=== PATIENT | male | born 1960 ===

== ENCOUNTER 2017-07-30 20:51 | Inpatient (IN) | payer MEDICAID, OTHER ==
--- NOTE | 2017-07-30 21:04 | C.PDOC ---
History Of Present Illness 57 year old male with PMHx of depression is transferred from [facility] for admission to psych. Patient was medically cleared at [facility] prior to coming tot the ED, patient will be admitted under Dr. Garcia's service for depression. Patient denies Si/HI, hallucinations, CP, SOB, abdominal pain. Time Seen by Provider: 07/30/17 21:01 Chief Complaint (Nursing): Psychiatric Evaluation History Per: Patient, Other ([facility] ) History/Exam Limitations: no limitations Onset/Duration Of Symptoms: Days Current Symptoms Are (Timing): Still Present Suicide/Self Injury Attempted (Context): None Modifying Factor(s): None Associated Symptoms: Depression Recent travel outside of the [place]: No Additional History Per: Patient, Prior Records Past Medical History Reviewed: Historical Data, Nursing Documentation, Vital Signs Vital Signs: Last Vital Signs Temp 98.6 F 07/30/17 20:54 Pulse 60 07/30/17 20:54 Resp 18 07/30/17 20:54 BP 162/73 H 07/30/17 20:54 Pulse Ox 99 07/30/17 21:04 - Medical History PMH: Depression - Social History Hx Alcohol Use: Yes Hx Substance Use: No ED Course And Treatment O2 Sat by Pulse Oximetry: 99 Disposition - Disposition Forms: [email or web address] (Turkish)
--- NOTE | 2017-07-30 21:06 | C.PDOC ---
History Of Present Illness 57 year old male with PMHx of depression is transferred from [facility] for admission to psych. Patient was medically cleared at [facility] prior to coming tot the ED, patient will be admitted under Dr. Garcia's service for depression. Patient denies SI/HI, hallucinations, CP, SOB, abdominal pain. Time Seen by Provider: 07/30/17 21:01 Chief Complaint (Nursing): Psychiatric Evaluation History Per: Patient, Other ([facility]) History/Exam Limitations: no limitations Onset/Duration Of Symptoms: Days Current Symptoms Are (Timing): Still Present Suicide/Self Injury Attempted (Context): None Associated Symptoms: Depression Recent travel outside of the [place]: No Additional History Per: Patient Past Medical History Reviewed: Historical Data, Nursing Documentation, Vital Signs Vital Signs: Last Vital Signs Temp 98.6 F 07/30/17 20:54 Pulse 60 07/30/17 20:54 Resp 18 07/30/17 20:54 BP 162/73 H 07/30/17 20:54 Pulse Ox 99 07/30/17 21:09 - Medical History PMH: Depression Surgical History: No Surg Hx Family History: States: No Known Family Hx - Social History Hx Alcohol Use: Yes Hx Substance Use: No Review Of Systems Constitutional: Negative for: Fever, Chills Cardiovascular: Negative for: Chest Pain Respiratory: Negative for: Shortness of Breath Gastrointestinal: Negative for: Abdominal Pain Psych: Positive for: Depression. Negative for: Suicidal ideation Physical Exam - Physical Exam Appears: Non-toxic, No Acute Distress Skin: Warm, Dry Head: Normacephalic Eye(s): bilateral: Normal Inspection Nose: No Discharge Oral Mucosa: Moist Neck: Normal ROM, Supple Chest: Symmetrical Cardiovascular: Rhythm Regular, No Murmur Respiratory: No Rales, No Rhonchi, No Wheezing Gastrointestinal/Abdominal: Soft, No Tenderness, No Guarding, No Rebound Extremity: Bilateral: Normal Color And Temperature, Normal ROM Neurological/Psych: Oriented x3 Gait: Steady ED Course And Treatment O2 Sat by Pulse Oximetry: 99 (ON RA) Pulse Ox Interpretation: Normal Disposition Discussed With : Barbara Garcia Comment: accepted the pt on his service and took over the care at 9:06 PM Doctor Will See Patient In The: Hospital Counseled Patient/Family Regarding: Studies Performed, Diagnosis - Disposition Disposition: HOSPITALIZED Disposition Time: 21:06 Condition: FAIR - POA Present On Arrival: None - Clinical Impression Clinical Impression: Depression - Scribe Statement The provider has reviewed the documentation as recorded by the Scribe Ulices Liu All medical record entries made by the Scribe were at my direction and personally dictated by me. I have reviewed the chart and agree that the record accurately reflects my personal performance of the history, physical exam, medical decision making, and the department course for this patient. I have also personally directed, reviewed, and agree with the discharge instructions and disposition.
--- NOTE | 2017-07-30 22:10 | PCM.BM ---
<Kennedi Severino - Last Filed: 07/30/17 22:06> Treatment Plan Problems - Problems identified on initial assessmt Depression Date Initiated: 07/30/17 Time Initiated: 22:06 Assessment reference: NA Status: Active Suicidal Ideation Date Initiated: 07/30/17 Time Initiated: 22:06 Assessment reference: NA Status: Monitor Treatment assets and liabiliti Patient Assests: cooperative Patient Liabilities: live alone, poor support system - Milieu Protocol Maintain good personal hygiene: daily Encourage regular showers, every shift Remind patient to perform daily oral care, every shift Assist patient to perform ADL's Maintain personal safety: every shift Educate patient to report safety concerns to staff, every shift Monitor environment for contraband/sharps Medication safety: Monitor for expected outcome, potential side effects: every shift, Assess barriers to learning: every shift, Assess readiness for medication education: every shift <Joyce Cohen - Last Filed: 08/01/17 11:13> Family Contact Family involvement: Famliy/SO not involved - Goals for Treatment Patient goals for treatment: "I need to go home." Discharge/Continuing Care - Education Needs Education Needs: Patient Medication, Patient Coping Skills, Patient Community resources - Discharge Discharge Criteria: Tolerates medication w/o severe side effects, No longer exhibiting s/s of withdrawal Discharge to:: Home - Treatment Team Participation Discussed with Family/SO: No Was Patient/Family/SO present at Treatment Team Meeting: Yes <Barbara Garcia - Last Filed: 08/06/17 11:28> - Diagnosis (1) Depression Status: Acute Interventions: 08/06/17 11:28 * Assess/adjust medications daily and /or as needed * See patient on an individual basis 7x/week to assess symptoms of depression * Monitor for side effects & effectiveness of medications * (2) Alcohol use disorder, severe, dependence Status: Acute Interventions: 08/06/17 11:28 * Assess 7x/week regarding severity of withdrawal * Educate regarding risks, benefits, side effects and alternatives of medications * Use Motivational Interviewing for abstinence * Use CBT for relapse prevention * Medication management for withdrawal symptoms * Encourage medication assisted treatment *
--- NOTE | 2017-07-31 11:03 | PCM.PSYCH ---
Initial Psychiatric Evaluation - Initial Psychiatric Evaluation Type of Admission: Voluntary Legal Status: Capacity Chief Complaint (in patient's own words): CC: "I don't want to live, I can't take it anymore" History of Present Illness and Precipitating Events: HPI: 57 year old male with PHx of depression and alcohol abuse was presented with suicidal ideation with worsening daily thoughts of harming himself. He complains of episodes of depression, anxiety, difficulty falling asleep and staying asleep, poor concentration, and racing thoughts. He says that he always gets angry easily. He reports auditory hallucinations that "I can't describe it but I have this feeling of talking to myself in my brain telling me to do things, like right now it's telling me 'how can I kill myself?'." He states he works a very stressful job at a [employer] with no rest or vacations and feels there is nothing to look forward to. Denies visual hallucinations or paranoia. PychHx: attempted suicide by pill ingestion and hanging; considered suicide by stabbing himself in the stomach but was stopped by a friend; no previous psychiatric evaluations or admissions FamHx: denies SocialxHx: - home: lives alone, is estranged from family, has 1 son and 2 step-daughters that he does not communicate with - tobacco: smokes 1 ppd for 45 years - alcohol: intermittent history of alcohol abuse over 40 years, currently 1-5 drinks after work intermittently - drugs: denies current drug use, but used crack 15 years ago; - occupation: works at a [employer], sometimes required to travel between [place] and [place] Current Medications: Active Medications Generic Name Dose Route Start Last Admin Trade Name Freq PRN Reason Stop Dose Admin Chlordiazepoxide 25 mg 07/31/17 00:25 Librium PO Q6 PRN Symptoms of alcohol withdrawl Hydroxyzine HCl 25 mg 07/31/17 00:25 Atarax PO Q6 PRN Anxiety Nicotine 1 patch 07/31/17 10:45 Nicoderm Cq TD DAILY OSWALDO Trazodone HCl 50 mg 07/31/17 00:25 Desyrel PO HS PRN Sleep Past Psychiatric History - Past Psychiatric History Previous Treatment History: None Pertinent Medical Hx (Current Medical&Sleep Prob, Allergies): Allergies Allergy/AdvReac Type Severity Reaction Status Date / Time No Known Allergies Allergy Unverified 07/30/17 20:54 No Known Home Med 07/30/17 Review of Systems - Review of Systems All systems: reviewed and no additional remarkable complaints except - Psychiatric Psychiatric: As Per HPI, Abnormal Sleep Pattern, Anxiety, Auditory Hallucinations, Depression, Difficulty Concentrating, Hopelessness, Mood Swings , Suicidal Ideation Mental Status Examination - Personal Presentation Personal Presentation: Looks older than stated age - Affect Affect: Constricted, Depressed - Motor Activity Motor Activity: Calm Additional comments: intention tremor present - Reliability in Providing Information Reliability in Providing Information: Good - Speech Speech: Organized - Mood Mood: Depressed, Anxious - Formal Thought Process Formal Thought Process: Hallucinations, Flight of ideas - Hallucinations/Delusions Hallucinations: Auditory - Obsessions/Compulsions Obsessions: No Compulsions: No - Cognitive Functions Orientation: Person, Place, Situation, Time Sensorium: Alert Attention/Concentration: Easily distracted Abstract Thinking: Bowman Estimate of Intelligence: Below average Judgement: Imparied, as evidence by: Poor judgement, Imparied, as evidence by: Lack of insight into illness - Risk Risk: Suicidal, Withdrawal, Diminished functioning - Strength & Assets Inventory Strength & Assets Inventory: Employment status Additional comments: 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 - Limitations Limitations: Living alone (estranged from family) DSM 5 DX - DSM 5 DSM 5 Diagnosis: Bipolar I disorder mixed severe with psychotic features Alcohol use disorder moderate Cocaine use disorder severe in sustained remission - Recommended/Plan of Treatment Treatment Recommendations and Plan of Treatment: Bipolar I disorder mixed severe with psychotic features -CBT -Attend groups and activities -Supportive therapy and psychoeducation -Depakote 250 mg PO bid -Klonopin 0.5 mg PO BID -Atarax 25 mg PO Q6 prn -Ativan 1 mg PO Q6 prn -Refer to outpt clinic -Self-help groups -All risks, benefits and alternatives of medications, including no medications, discussed, and the patient understood and agreed. 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
[2017-07-31] MEDS: Divalproex 250 mg DR Tab PO SCH ×2 (11:28→17:05)
[2017-08-01] MEDS: Divalproex 250 mg DR Tab PO SCH ×2 (09:54→17:44)
--- NOTE | 2017-08-01 15:46 | PCM.PYCHPN ---
Psychiatric Progress Note - Psychiatric Progress Note Patient seen today, length of contact: 16 min Patient Chief Complaint: CC: "I don't want to live, I can't take it anymore" Problems Identified/Issues Discussed: Patient seen and evaluated, chart reviewed and discussed with the nurse. Patient appears more organized and less irritable today. Patient states he feels more calm than yesterday. Patient complains of generalized itch over entire body that he has experienced before and usually takes care of by drinking alcohol. He still reports depressed mood and racing of thoughts. He remained isolated, confined and withdrawn. Patient is compliant with medications and denies any side effects. Symptoms are improving but need more time to stabilize. Support and psychoeducation given. Medication Change: Yes (d/c baldemar) Medical Record Reviewed: Yes Mental Status Examination - Cognitive Function Orientation: Person, Place, Situation, Time Memory: Intact Attention: WNL Concentration: Poor Association: Loose Fund of Knowledge: WNL - Mood Mood: Depressed, Anxious - Affect Affect: Constricted, Depressed - Speech Speech: Soft - Formal Thought Process Formal Thought Process: Hallucinations, Flight of ideas - Suicidal Ideation Suicidal Ideation: No - Homicidal Ideation Homicidal Ideation: No Goal/Treatment Plan - Goal/Treatment Plan Need for Continued Stay: Severe depression anxiety, Severe functional impairment Progress Toward Problem(s) and Goals/Treatment Plan: Bipolar I disorder mixed severe with psychotic features -CBT -Attend groups and activities -Supportive therapy and psychoeducation -Depakote 250 mg PO bid -Klonopin 0.5 mg PO BID -Atarax 25 mg PO Q6 prn -Ativan 1 mg PO Q6 prn -Refer to outpt clinic -Self-help groups -All risks, benefits and alternatives of medications, including no medications, discussed, and the patient understood and agreed. Alcohol use disorder moderate -Attend groups and activities -Supportive therapy and psychoeducation -Ativan 1 mg PO Q6 prn Cocaine use disorder severe in sustained remission -Attend groups and activities -Supportive therapy and psychoeducation Tobacco use disorder severe -tobacco withdrawal -nicotine patch - Smoking Cessation Smoking Cessation Initiated: No
[2017-08-02] MEDS: Divalproex 250 mg DR Tab PO SCH ×2 (09:57→18:02)
--- NOTE | 2017-08-02 11:33 | PCM.PYCHPN ---
Psychiatric Progress Note - Psychiatric Progress Note Patient seen today, length of contact: 16 min Patient Chief Complaint: CC: "I don't want to live, I can't take it anymore" Problems Identified/Issues Discussed: Patient seen and evaluated, chart reviewed and discussed with the nurse. Patient appears more organized and less irritable today. Patient states he feels more calm than yesterday. Patient is now complaining of stiffness in his arms and legs as well as generalized muscular pain. He still reports racing thoughts and poor sleep, but better than yesterday. He remained isolated, confined and withdrawn but has interaction with some other patients. Patient is compliant with medications and denies any side effects. Symptoms are improving but need more time to stabilize. Support and psychoeducation given. Medication Change: Yes (d/c baldemar) Medical Record Reviewed: Yes Mental Status Examination - Cognitive Function Orientation: Person, Place, Situation, Time Memory: Intact Attention: WNL Concentration: Poor Association: Loose Fund of Knowledge: WNL Addtional comments: Mild cogwheeling of bilateral upper extremities - Mood Mood: Depressed, Anxious - Affect Affect: Constricted, Depressed - Speech Speech: Soft - Formal Thought Process Formal Thought Process: Hallucinations, Flight of ideas - Suicidal Ideation Suicidal Ideation: No - Homicidal Ideation Homicidal Ideation: No Goal/Treatment Plan - Goal/Treatment Plan Need for Continued Stay: Severe depression anxiety, Severe functional impairment Progress Toward Problem(s) and Goals/Treatment Plan: Bipolar I disorder mixed severe with psychotic features -CBT -Attend groups and activities -Supportive therapy and psychoeducation -Depakote 250 mg PO bid -Klonopin 0.5 mg PO BID -Atarax 25 mg PO Q6 prn -Ativan 1 mg PO Q6 prn -Refer to outpt clinic -Self-help groups -All risks, benefits and alternatives of medications, including no medications, discussed, and the patient understood and agreed. Alcohol use disorder moderate -Attend groups and activities -Supportive therapy and psychoeducation -Ativan 1 mg PO Q6 prn Cocaine use disorder severe in sustained remission -Attend groups and activities -Supportive therapy and psychoeducation Tobacco use disorder severe -tobacco withdrawal -nicotine patch - Smoking Cessation Smoking Cessation Initiated: No
[2017-08-03] MEDS: Divalproex 250 mg DR Tab PO SCH ×2 (10:30→17:20)
--- NOTE | 2017-08-03 15:49 | PCM.PYCHPN ---
Psychiatric Progress Note - Psychiatric Progress Note Patient seen today, length of contact: 16 min Patient Chief Complaint: CC: "I am feeling little better.' Problems Identified/Issues Discussed: Patient seen and evaluated, chart reviewed and discussed with the nurse. Patient states he is feeling little better and his sleep was improved. He reports improvement in his mood and improvement in the feelings of hopelessness and helplessness. Pt denies auditory and visual hallucinations. Patient is compliant with medications and denies any side effects. Symptoms are improving but need more time to stabilize. Support and psychoeducation given. Medication Change: Yes (start seroquel) Medical Record Reviewed: Yes Mental Status Examination - Cognitive Function Orientation: Person, Place, Situation, Time Memory: Intact Attention: WNL Concentration: Poor Association: Loose Fund of Knowledge: WNL - Mood Mood: Depressed, Anxious - Affect Affect: Constricted, Depressed - Speech Speech: Soft - Formal Thought Process Formal Thought Process: No Impairment - Suicidal Ideation Suicidal Ideation: No - Homicidal Ideation Homicidal Ideation: No Goal/Treatment Plan - Goal/Treatment Plan Need for Continued Stay: Severe depression anxiety, Severe functional impairment Progress Toward Problem(s) and Goals/Treatment Plan: Bipolar I disorder mixed severe with psychotic features -CBT -Attend groups and activities -Supportive therapy and psychoeducation -Depakote 250 mg PO bid -d/c Klonopin 0.5 mg PO BID -Atarax 25 mg PO Q6 prn -Ativan 1 mg PO Q6 prn -Seroquel 100 mg PO QHS -Refer to outpt clinic -Self-help groups -All risks, benefits and alternatives of medications, including no medications, discussed, and the patient understood and agreed. Alcohol use disorder moderate -Attend groups and activities -Supportive therapy and psychoeducation -Ativan 1 mg PO Q6 prn Cocaine use disorder severe in sustained remission -Attend groups and activities -Supportive therapy and psychoeducation Tobacco use disorder severe -tobacco withdrawal -nicotine patch - Smoking Cessation Smoking Cessation Initiated: No
[2017-08-04] MEDS: Divalproex 250 mg DR Tab PO SCH ×2 (10:08→17:41)
--- NOTE | 2017-08-04 17:28 | PCM.PYCHPN ---
Psychiatric Progress Note - Psychiatric Progress Note Patient seen today, length of contact: 16 min Patient Chief Complaint: "Good" Problems Identified/Issues Discussed: The pt is seen, chart reviewed, case discussed with staff. Support given, CBT and [place] used briefly No new symptoms reported, improving slowly and needs more time No SEs from medications, risks discussed. After care discussed Some sleep problems continue Medication Change: No Medical Record Reviewed: Yes Mental Status Examination - Cognitive Function Orientation: Person, Place, Situation, Time Memory: Intact Attention: WNL Concentration: Poor Association: Loose Fund of Knowledge: WNL - Mood Mood: Depressed, Anxious - Affect Affect: Constricted, Depressed - Speech Speech: Soft - Formal Thought Process Formal Thought Process: No Impairment - Suicidal Ideation Suicidal Ideation: No - Homicidal Ideation Homicidal Ideation: No Goal/Treatment Plan - Goal/Treatment Plan Need for Continued Stay: Severe depression anxiety, Discharge may exacerbated symptoms, Severe functional impairment Progress Toward Problem(s) and Goals/Treatment Plan: Continue medications Support and psychoeducation daily Attend groups and activities daily After care planning by JUNIOR
[2017-08-05 06:34] VITALS: O2SAT 99
[2017-08-05] MEDS: Divalproex 250 mg DR Tab PO SCH ×2 (09:10→18:17)
[2017-08-06] MEDS: Divalproex 250 mg DR Tab PO SCH ×2 (09:35→17:26)
--- NOTE | 2017-08-06 11:36 | PCM.PYCHPN ---
Psychiatric Progress Note - Psychiatric Progress Note Patient seen today, length of contact: 16 min Patient Chief Complaint: CC: "I am feeling little better.' Problems Identified/Issues Discussed: Patient seen and evaluated, chart reviewed and discussed with the nurse. Patient states he is feeling little better and his sleep was improved. He reports improvement in his mood and improvement in the feelings of hopelessness and helplessness. Patient denies auditory and visual hallucinations. Patient complains of generalized itching after taking Trazadone for sleep, states that it happened a previous night as well but he did not mention it to anyone when asked. Patient is compliant with medications. Symptoms are improving but need more time to stabilize. Support and psychoeducation given. Medication Change: No Medical Record Reviewed: Yes Mental Status Examination - Cognitive Function Orientation: Person, Place, Situation, Time Memory: Intact Attention: WNL Concentration: Poor Association: Loose Fund of Knowledge: WNL - Mood Mood: Depressed, Anxious - Affect Affect: Constricted, Depressed - Speech Speech: Soft - Formal Thought Process Formal Thought Process: No Impairment - Suicidal Ideation Suicidal Ideation: No - Homicidal Ideation Homicidal Ideation: No Goal/Treatment Plan - Goal/Treatment Plan Need for Continued Stay: Severe depression anxiety, Discharge may exacerbated symptoms, Severe functional impairment Progress Toward Problem(s) and Goals/Treatment Plan: Bipolar I disorder mixed severe with psychotic features -CBT -Attend groups and activities -Supportive therapy and psychoeducation -Depakote 250 mg PO bid -d/c Klonopin 0.5 mg PO BID -Atarax 25 mg PO Q6 prn -Ativan 1 mg PO Q6 prn -Seroquel 100 mg PO QHS -Refer to outpt clinic -Self-help groups -All risks, benefits and alternatives of medications, including no medications, discussed, and the patient understood and agreed. 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
--- NOTE | 2017-08-06 11:52 | PCM.PYCHPN ---
Psychiatric Progress Note - Psychiatric Progress Note Patient seen today, length of contact: 16 min Patient Chief Complaint: I AM ITCHY AND CONFUSED ABOUT MY LIFE Problems Identified/Issues Discussed: PT SEEN AND EXAMINRD DISCUSSED WITH STAFF,. PT STATES HEWAS ITCHY BEFORE HE CAME TO HOSPITAL. PT HAS HAD NO CRAVINGS PAWS Medical Problems: PRURITUS Diagnostic Results: REVIEWED Medication Change: Yes (ATARAX) Medical Record Reviewed: Yes Mental Status Examination - Cognitive Function Orientation: Person, Place, Situation, Time Memory: Intact Attention: WNL Concentration: Poor Association: WNL Fund of Knowledge: WNL - Mood Mood: Depressed - Affect Affect: Constricted, Depressed - Speech Speech: Appropriate, Soft - Formal Thought Process Formal Thought Process: No Impairment - Suicidal Ideation Suicidal Ideation: No - Homicidal Ideation Homicidal Ideation: No Goal/Treatment Plan - Goal/Treatment Plan Need for Continued Stay: Severe depression anxiety, Discharge may exacerbated symptoms, Severe functional impairment Progress Toward Problem(s) and Goals/Treatment Plan: BIPOLAR DISORDER DEPAKOTE Estimated Date of D/C: 08/06/17 - Smoking Cessation Smoking Cessation Initiated: Yes
[2017-08-07] MEDS: Divalproex 250 mg DR Tab PO SCH ×2 (10:36→17:36)
--- NOTE | 2017-08-07 14:47 | PCM.PYCHPN ---
Psychiatric Progress Note - Psychiatric Progress Note Patient seen today, length of contact: 16 min Patient Chief Complaint: CC: "I am feeling little better.' Problems Identified/Issues Discussed: Patient seen and evaluated, chart reviewed and discussed with the nurse. Patient reports improvement in his mood and improvement in the feelings of hopelessness and helplessness. Patient denies auditory and visual hallucinations. Patient is compliant with medications. Symptoms are improving but need more time to stabilize. Support and psychoeducation given. Medication Change: No Medical Record Reviewed: Yes Mental Status Examination - Cognitive Function Orientation: Person, Place, Situation, Time Memory: Intact Attention: WNL Concentration: Poor Association: Loose Fund of Knowledge: WNL - Mood Mood: Depressed, Anxious - Affect Affect: Constricted, Depressed - Speech Speech: Soft - Formal Thought Process Formal Thought Process: No Impairment - Suicidal Ideation Suicidal Ideation: No - Homicidal Ideation Homicidal Ideation: No Goal/Treatment Plan - Goal/Treatment Plan Need for Continued Stay: Severe depression anxiety, Discharge may exacerbated symptoms, Severe functional impairment Progress Toward Problem(s) and Goals/Treatment Plan: Bipolar I disorder mixed severe with psychotic features -CBT -Attend groups and activities -Supportive therapy and psychoeducation -Depakote 250 mg PO bid -d/c Klonopin 0.5 mg PO BID -Atarax 25 mg PO Q6 prn -Ativan 1 mg PO Q6 prn -Seroquel 100 mg PO QHS -Refer to outpt clinic -Self-help groups -All risks, benefits and alternatives of medications, including no medications, discussed, and the patient understood and agreed. 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
[2017-08-08] MEDS: Divalproex 250 mg DR Tab PO SCH ×2 (09:58→18:15)
--- NOTE | 2017-08-08 14:07 | PCM.PYCHPN ---
Psychiatric Progress Note - Psychiatric Progress Note Patient seen today, length of contact: 16 min Patient Chief Complaint: CC: "I am feeling little better.' Problems Identified/Issues Discussed: Patient seen and evaluated, chart reviewed and discussed with the nurse. Patient reports much improvement in his mood and better sleep last night. He states he thinks he can quit drinking with some more help. Patient denies auditory and visual hallucinations. Patient is compliant with medications. Symptoms are improving but need more time to stabilize. Support and psychoeducation given. Medication Change: No Medical Record Reviewed: Yes Mental Status Examination - Cognitive Function Orientation: Person, Place, Situation, Time Memory: Intact Attention: WNL Concentration: Poor Association: Loose Fund of Knowledge: WNL - Mood Mood: Depressed, Anxious - Affect Affect: Constricted, Depressed - Speech Speech: Soft - Formal Thought Process Formal Thought Process: No Impairment - Suicidal Ideation Suicidal Ideation: No - Homicidal Ideation Homicidal Ideation: No Goal/Treatment Plan - Goal/Treatment Plan Need for Continued Stay: Severe depression anxiety, Discharge may exacerbated symptoms, Severe functional impairment Progress Toward Problem(s) and Goals/Treatment Plan: Bipolar I disorder mixed severe with psychotic features -CBT -Attend groups and activities -Supportive therapy and psychoeducation -Depakote 250 mg PO bid -d/c Klonopin 0.5 mg PO BID -Atarax 25 mg PO Q6 prn -Ativan 1 mg PO Q6 prn -Seroquel 100 mg PO QHS -Refer to outpt clinic -Self-help groups -All risks, benefits and alternatives of medications, including no medications, discussed, and the patient understood and agreed. 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
[2017-08-09] MEDS: Divalproex 250 mg DR Tab PO SCH ×2 (09:55→17:07)
--- NOTE | 2017-08-09 15:37 | PCM.PYCHPN ---
Psychiatric Progress Note - Psychiatric Progress Note Patient seen today, length of contact: 16 min Patient Chief Complaint: CC: "I am feeling little better.' Problems Identified/Issues Discussed: Patient seen and evaluated, chart reviewed and discussed with the nurse. Patient reports improvement in his mood and improvement in the feelings of hopelessness and helplessness. Patient denies auditory and visual hallucinations. Patient complains of generalized itching that is worse when taking a shower. Patient is compliant with medications. Symptoms are improving but need more time to stabilize. Support and psychoeducation given. Medication Change: No Medical Record Reviewed: Yes Mental Status Examination - Cognitive Function Orientation: Person, Place, Situation, Time Memory: Intact Attention: WNL Concentration: Poor Association: Loose Fund of Knowledge: WNL - Mood Mood: Depressed, Anxious - Affect Affect: Constricted, Depressed - Speech Speech: Soft - Formal Thought Process Formal Thought Process: No Impairment - Suicidal Ideation Suicidal Ideation: No - Homicidal Ideation Homicidal Ideation: No Goal/Treatment Plan - Goal/Treatment Plan Need for Continued Stay: Severe depression anxiety, Discharge may exacerbated symptoms, Severe functional impairment Progress Toward Problem(s) and Goals/Treatment Plan: Bipolar I disorder mixed severe with psychotic features -CBT -Attend groups and activities -Supportive therapy and psychoeducation -Depakote 250 mg PO bid -d/c Klonopin 0.5 mg PO BID -Atarax 25 mg PO Q6 prn -Ativan 1 mg PO Q6 prn -Seroquel 100 mg PO QHS -Refer to outpt clinic -Self-help groups -All risks, benefits and alternatives of medications, including no medications, discussed, and the patient understood and agreed. 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
[2017-08-10 06:22] VITALS: BP 120/62; PULSE 60; RESP 18; TEMP 97.6
--- NOTE | 2017-08-10 10:05 | PCM.PYCHDC ---
Mental Status Examination - Mental Status Examination Orientation: Person, Place, Situation, Time Memory: Intact Mood: Neutral Affect: Constricted Speech: Soft Attention: WNL Concentration: WNL Association: WNL Fund of Knowledge: WNL Formal Thought Process: No Impairment Description of patient's judgement and insight: good, fair Psychotic Thoughts and Behaviors: denies any AVH Suicidal Ideation: No Current Homicidal Ideation?: No Discharge Summary - Discharge Note Reason for Hospitalization: HPI: 57 year old male with PHx of depression and alcohol abuse was presented with suicidal ideation with worsening daily thoughts of harming himself. He complains of episodes of depression, anxiety, difficulty falling asleep and staying asleep, poor concentration, and racing thoughts. He says that he always gets angry easily. 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 Denies visual hallucinations or paranoia. PychHx: attempted suicide by pill ingestion and hanging; considered suicide by stabbing himself in the stomach but was stopped by a friend; no previous psychiatric evaluations or admissions Consultations:: List each consultation separately and include: 1. Reason for request. 2. Findings. 3. Follow-up Summary of Hospital Course include:: 1. Description of specific treatment plan utilized for patients during their course of treatmen. 2. Summarize the time- course for resolution of acute symptoms and/or regressed behaviors. 3. Describe issues identified and worked on during hospitalization. 4. Describe medication utilized. 5. Describe medical problems identified and treated. 6. Reassessment of suicide risk Summary of Hospital Course: During the course of his stay, patient (pt) started progressively improving and he no longer remained irritable, depressed, and suicidal. His mood and anxiety symptoms were improved and he started attending groups and meetings and started socializing. Patient denied any feelings of hopelessness, helplessness, and worthlessness, denied any problem with the sleep or appetite, denied suicidal ideation or homicidal ideation. Pt denied any auditory or visual hallucinations. He denied any withdrawal symptoms. Some changes were made in his current medications and patient was discharged on following medications. He tolerated these medications very well and denied any side effects. He was discharged to the [facility]. - Diagnosis (1) Depression Status: Acute (2) Alcohol use disorder, severe, dependence Status: Acute - Final Diagnosis (DSM 5) Condition upon Discharge: FAIR DSM 5: Bipolar I disorder mixed severe with psychotic features Alcohol use disorder moderate Cocaine use disorder severe in sustained remission Disposition: HOME/ ROUTINE Follow-up Treatment Plan: Education: Pt was educated and counseled about the risks and benefits of taking and not taking medications. Pt was educated and counseled about the risks of drinking and abusing drugs. Pt was educated and counseled to go to the ER or call 911 if pt develop suicidal ideation or homicidal ideation, worsening of symptoms or severe side effects of the meds. Prescriptions/Medication Reconciliation: Divalproex [Depakote DR] 250 mg PO BID #60 tcp QUEtiapine [Seroquel] 100 mg PO HS #30 tab - Smoking Cessation Smoking Cessation Medication prescribed: No - Antipsychotic Medications Pt discharged on 2 or more routine antipsychotic medications: No
[2017-08-10] MEDS: Divalproex 250 mg DR Tab PO SCH (10:13)
== END 2017-08-10 12:22 | disposition home or self-care (01) | DRG 430 ==
LOC: C.ER 20:51 → C.5E 21:03
PROVIDERS: ADMIT Psychiatry & Neurology Psychiatry; ATTEND Psychiatry & Neurology Psychiatry
PROC: GZHZZZZ Group Psychotherapy (ICD-10-PCS; principal; 2017-07-30)
PROC: GZ58ZZZ Individual Psychotherapy, Cognitive-Behavioral (ICD-10-PCS; 2017-07-30)
PROC: GZ56ZZZ Individual Psychotherapy, Supportive (ICD-10-PCS; 2017-07-30)
PROC: HZ52ZZZ Individual Psychotherapy for Substance Abuse Treatment, Cognitive-Behavioral (ICD-10-PCS; 2017-07-30)
PROC: HZ59ZZZ Individual Psychotherapy for Substance Abuse Treatment, Supportive (ICD-10-PCS; 2017-07-30)
PROC: HZ56ZZZ Individual Psychotherapy for Substance Abuse Treatment, Psychoeducation (ICD-10-PCS; 2017-07-30)
PROC: HZ42ZZZ Group Counseling for Substance Abuse Treatment, Cognitive-Behavioral (ICD-10-PCS; 2017-07-30)
PROC: HZ46ZZZ Group Counseling for Substance Abuse Treatment, Psychoeducation (ICD-10-PCS; 2017-07-30)
DX: F31.64 Bipolar disorder, current episode mixed, severe, with psychotic features (principal); F17.213 Nicotine dependence, cigarettes, with withdrawal; R45.851 Suicidal ideations; F10.20 Alcohol dependence, uncomplicated; F14.21 Cocaine dependence, in remission; F41.9 Anxiety disorder, unspecified; L29.9 Pruritus, unspecified